=== PATIENT | female | born 1955 | race African-American/Black ===

== ENCOUNTER 2018-02-13 13:29 | Outpatient (CLI) | payer BC | END 2018-02-13 13:30 | disposition home or self-care (01) | LOC: BICMAMMO 13:29 | PROVIDERS: ATTEND Family Medicine | DX: Z12.31 Encounter for screening mammogram for malignant neoplasm of breast (principal); Z80.3 Family history of malignant neoplasm of breast | CPT/HCPCS: 77063; 77067 ==

== ENCOUNTER 2019-02-14 08:04 | Outpatient (CLI) | payer OTHER ==
--- NOTE | 2019-02-14 08:39 | MMO ---
Bilateral MAMMO Bilat Screen [facility]. CLINICAL HISTORY: Patient is 63 years old and is seen for screening. The patient has the following family history of breast cancer: grandmother. The patient has a history of malignant (generic) in the left breast 2007. The patient has a history of left Excisional Biopsy in March, - benign, left Lumpectomy in 2007 - malignant, right Breast reduction in 2007 and right needle biopsy more than 10 years ago - benign. VIEWS: The views performed were: bilateral craniocaudal with tomosynthesis and bilateral mediolateral oblique with tomosynthesis. FILMS COMPARED: The present examination has been compared to prior imaging studies performed at [facility] on 10/18/2016 and 02/13/2018, and at [facility] on 08/16/2013 and 10/31/2014. MAMMOGRAM FINDINGS: There are scattered fibroglandular densities. Finding 1: There are benign appearing calcifications seen in both breasts. Finding 2: There are post operative changes seen in the left breast. Finding 3: There is a biopsy clip seen in the right breast. There are no suspicious masses, suspicious calcifications, or new areas of architectural distortion. IMPRESSION: THERE IS NO MAMMOGRAPHIC EVIDENCE OF MALIGNANCY. A ROUTINE FOLLOW-UP MAMMOGRAM IN 1 YEAR IS RECOMMENDED. THE RESULTS OF THIS EXAM WERE SENT TO THE PATIENT. ACR BI-RADS Category 2 - Benign finding MAMMOGRAPHY NOTE: 1. A negative mammogram report should not delay a biopsy if a dominant of clinically suspicious mass is present. 2. Approximately 10% to 15% of breast cancers are not detected by mammography. 3. Adenosis and dense breasts may obscure an underlying neoplasm. Reported by: DARIO GARCIA MD Electonically Signed: [id number]
== END 2019-02-14 08:05 | disposition home or self-care (01) ==
LOC: BICMAMMO 08:04
PROVIDERS: ATTEND Family Medicine
DX: Z12.31 Encounter for screening mammogram for malignant neoplasm of breast (principal); Z80.3 Family history of malignant neoplasm of breast; Z85.3 Personal history of malignant neoplasm of breast; Z91.89 Other specified personal risk factors, not elsewhere classified; Z98.890 Other specified postprocedural states
CPT/HCPCS: 77063; 77067

== ENCOUNTER 2020-04-01 11:58 | Outpatient (CLI) | payer BC ==
--- NOTE | 2020-04-01 13:16 | MMO ---
Bilateral MAMMO Bilat Screen [facility]. CLINICAL HISTORY: Patient is 64 years old and is seen for screening. The patient has the following family history of breast cancer: grandmother. The patient has a history of malignant (generic) in the left breast 2007. The patient has a history of left Excisional Biopsy in March, - benign, left Lumpectomy in 2007 - malignant, right Breast reduction in 2007 and right needle biopsy more than 10 years ago - benign. VIEWS: The views performed were: bilateral craniocaudal with tomosynthesis and bilateral mediolateral oblique with tomosynthesis. FILMS COMPARED: The present examination has been compared to prior imaging studies performed at [facility] on 10/18/2016, 02/13/2018 and 02/14/2019, and at [facility] on 10/31/2014. This study has been interpreted with the assistance of computer-aided detection. MAMMOGRAM FINDINGS: There are scattered fibroglandular densities. There are no suspicious masses, suspicious calcifications, or new areas of architectural distortion. IMPRESSION: THERE IS NO MAMMOGRAPHIC EVIDENCE OF MALIGNANCY. A ROUTINE FOLLOW-UP MAMMOGRAM IN 1 YEAR IS RECOMMENDED. THE RESULTS OF THIS EXAM WERE SENT TO THE PATIENT. ACR BI-RADS Category 1 - Negative MAMMOGRAPHY NOTE: 1. A negative mammogram report should not delay a biopsy if a dominant of clinically suspicious mass is present. 2. Approximately 10% to 15% of breast cancers are not detected by mammography. 3. Adenosis and dense breasts may obscure an underlying neoplasm. Reported by: Maribell PONCE Electonically Signed: [id number]
== END 2020-04-01 11:59 | disposition home or self-care (01) ==
LOC: BICMAMMO 11:58
PROVIDERS: ATTEND Family Medicine
DX: Z12.31 Encounter for screening mammogram for malignant neoplasm of breast (principal); Z98.890 Other specified postprocedural states; Z85.3 Personal history of malignant neoplasm of breast; Z80.3 Family history of malignant neoplasm of breast
CPT/HCPCS: 77063; 77067

== ENCOUNTER 2021-05-08 09:21 | Outpatient (CLI) | payer BC | END 2021-05-08 09:22 | disposition home or self-care (01) | LOC: BICMAMMO 09:21 | PROVIDERS: ATTEND Family Medicine | DX: Z12.31 Encounter for screening mammogram for malignant neoplasm of breast (principal); Z80.3 Family history of malignant neoplasm of breast; Z85.3 Personal history of malignant neoplasm of breast; Z91.89 Other specified personal risk factors, not elsewhere classified; Z98.890 Other specified postprocedural states; Z98.82 Breast implant status | CPT/HCPCS: 77063; 77067 ==

== ENCOUNTER 2022-06-28 11:22 | Outpatient (CLI) | payer BC, MEDICARE | END 2022-06-28 11:23 | disposition home or self-care (01) | LOC: BICMAMMO 11:22 | PROVIDERS: ATTEND Family Medicine | DX: Z12.31 Encounter for screening mammogram for malignant neoplasm of breast (principal); R92.1 Mammographic calcification found on diagnostic imaging of breast; Z85.3 Personal history of malignant neoplasm of breast; Z98.890 Other specified postprocedural states; Z86.018 Personal history of other benign neoplasm; Z91.89 Other specified personal risk factors, not elsewhere classified; Z80.3 Family history of malignant neoplasm of breast | CPT/HCPCS: 77063; 77067 ==

== ENCOUNTER 2022-10-07 14:32 | Outpatient (CLI) | payer MEDICARE ==
[2022-10-07 15:12] LABS: #Eosinphils 0.2 10x3/uL (0.0-0.5); #Monocytes 0.6 10x3/uL (0.0-1.1); #Neutrophils 3.7 10x3/uL (1.5-8.4); %Basophils 0.3 % (0.0-2.0); %Eosinophils 3.1 % (0.0-6.0); %Lymphocytes 24.7 % (18.0-47.0); %Monocytes 9.5 % (0.0-10.0); %Neutrophils 62.2 % (40.0-75.0); Hemoglobin 12.3 g/dL (12.0-15.5); Mean Corpuscular HGB CONC 31.2 g/dL (32.0-36.0); Mean Corpuscular Hemoglobin 25.8 pg (27.0-33.0); Mean Corpuscular Volume 82.6 fl (81.6-98.3); Platelet Count 324 10x3/uL (150-450); RBC Distribution Width 15.9 % (11.5-14.5); Red Blood Cell (RBC) Count 4.77 10x6/uL (3.90-5.03); White Blood Cell (WBC) Count 5.9 10x3/uL (3.5-10.5)
[2022-10-07 15:36] LABS: Anion Gap 15 mmol/L (10-20); BUN (Urea Nitrogen) 15 mg/dL (9.8-20.1); Calc. Creatinine Clearance 0 mL/min (70-130); Calcium 9.2 mg/dL (7.8-10.44); Carbon Dioxide 26 mmol/L (23-31); Chloride 103 mmol/L (98-107); Estimated GFR 56; Glucose 161 mg/dL (80-115); Potassium 3.8 mmol/L (3.5-5.1); Sodium 140 mmol/L (136-145)
== END 2022-10-07 14:33 | disposition home or self-care (01) ==
LOC: LABBT 14:32
PROVIDERS: ATTEND Orthopaedic Surgery Hand Surgery
DX: Z01.812 Encounter for preprocedural laboratory examination (principal); M15.4 Erosive (osteo)arthritis
CPT/HCPCS: 80048; 85025; 93005; 93010

== ENCOUNTER 2022-10-12 06:23 | Day surgery (SDC) | payer MEDICARE ==
[2022-10-08 16:07] VITALS: BMI 39.4
[2022-10-12] MEDS ORDERED: Bupivacaine PF 0.5% 30 ML VIAL ONE (07:49)
[2022-10-12] MEDS ORDERED: Betamet Acet/Betamet Na Ph 30 MG/5 ML VIAL ONE (07:50)
[2022-10-12] MEDS ORDERED: Bacitracin Zinc Ointment 30 gm TUBE ONE (07:50)
[2022-10-12] MEDS ORDERED: Sodium Chloride 0.9% 100 ML ONE (08:12)
[2022-10-12] MEDS ORDERED: CEFAZOLIN 2 GM VIAL ONE (08:12)
[2022-10-12] MEDS ORDERED: fentaNYL PF 100 MCG/2 ML SYRINGE ONE (08:13)
[2022-10-12] MEDS ORDERED: Metoclopramide HCl 10 MG/2 ML VIAL ONE (08:23)
[2022-10-12] MEDS ORDERED: PROPOFOL 200 MG/20 ML VIAL ONE (08:23)
[2022-10-12] MEDS ORDERED: Ondansetron PF 4 MG/2 ML Vial ONE (08:23)
[2022-10-12] MEDS ORDERED: PHENYLEPHRINE-NS 100 MCG/ML 10 ML SYRINGE ONE (08:23)
[2022-10-12] MEDS ORDERED: Lidocaine 1% PF 5 ML VIAL ONE (08:23)
[2022-10-12] MEDS ORDERED: Ketorolac Tromethamine 30 MG/ML VIAL ONE (08:23)
== END 2022-10-12 10:49 | disposition home or self-care (01) ==
LOC: SDC 06:23
PROVIDERS: ATTEND Orthopaedic Surgery Hand Surgery
PROC: 0LB50ZZ Excision of Right Lower Arm and Wrist Tendon, Open Approach (ICD-10-PCS; principal; 2022-10-12)
DX: M65.4 Radial styloid tenosynovitis [de Quervain] (principal); I10 Essential (primary) hypertension; E78.5 Hyperlipidemia, unspecified; E11.9 Type 2 diabetes mellitus without complications; K21.9 Gastro-esophageal reflux disease without esophagitis; N32.81 Overactive bladder; M79.7 Fibromyalgia; M06.9 Rheumatoid arthritis, unspecified; Z79.4 Long term (current) use of insulin; Z79.82 Long term (current) use of aspirin; Z79.84 Long term (current) use of oral hypoglycemic drugs; Z79.85 Long-term (current) use of injectable non-insulin antidiabetic drugs; Z79.899 Other long term (current) drug therapy
CPT/HCPCS: J0702; J1885; J2405; J2704; J2765; J3490; S0020

== ENCOUNTER 2023-05-23 12:19 | Outpatient (CLI) | payer MEDICARE ==
[~2023-05-23 12:19] MED LIST: Iopamidol 370 76% 100 ML VIAL ONE
== END 2023-05-23 12:20 | disposition home or self-care (01) ==
LOC: BICCT 12:19
PROVIDERS: ATTEND Family Medicine
DX: R26.89 Other abnormalities of gait and mobility (principal)
CPT/HCPCS: 70470; 82565; Q9967

== ENCOUNTER 2023-07-28 14:28 | Outpatient (CLI) | payer MEDICARE | END 2023-07-28 14:29 | disposition home or self-care (01) | LOC: BICMAMMO 14:28 | PROVIDERS: ATTEND Family Medicine | DX: Z12.31 Encounter for screening mammogram for malignant neoplasm of breast (principal); Z80.3 Family history of malignant neoplasm of breast; Z85.3 Personal history of malignant neoplasm of breast; Z91.89 Other specified personal risk factors, not elsewhere classified; Z98.890 Other specified postprocedural states | CPT/HCPCS: 77063; 77067 ==

== ENCOUNTER 2023-10-31 13:23 | Outpatient (CLI) | payer MEDICARE | END 2023-10-31 13:24 | disposition home or self-care (01) | LOC: BICMAMMO 13:23 | PROVIDERS: ATTEND Family Medicine | DX: Z13.820 Encounter for screening for osteoporosis (principal); M85.89 Other specified disorders of bone density and structure, multiple sites; Z78.0 Asymptomatic menopausal state | CPT/HCPCS: 77080 ==

== ENCOUNTER 2025-04-17 12:21 | Emergency (ER) | payer MEDICARE ==
[2025-04-17 13:13] LABS: #Basophils Less than 0.03 10x3/uL (0.0-0.2); #Eosinophils 0.27 10x3/uL (0.0-0.7); #Monocytes 0.52 10x3/uL (0.11-0.59); #Neutrophils 3.69 10x3/uL (1.40-6.50); %Basophils 0.3 % (0.0-1.0); %Eosinophils 4.3 % (0.0-10.0); %Lymphocytes 27.7 % (21.0-51.0); %Monocytes 8.3 % (0.0-10.0); %Neutrophils 59.1 % (42.0-75.0); Hematocrit 38.7 % (36.0-47.0); Hemoglobin 12.4 g/dL (12.0-16.0); Mean Corpuscular Hemoglobin 25.6 pg (27.0-31.0); Mean Corpuscular Volume 79.8 fL (78.0-98.0); Platelet Count 297 10x3/uL (130-400); Red Blood Cell (RBC) Count 4.85 mill/uL (4.20-5.40); White Blood Cell (WBC) Count 6.25 10x3/uL (4.8-10.8)
[2025-04-17 13:32] LABS: ALT (SGPT) 23 U/L (Less than 34); AST (SGOT) 35 U/L (11-34); Albumin 3.7 g/dL (3.1-4.5); Alkaline Phosphatase 53 U/L (40-110); Anion Gap 15 mmol/L (10-20); BUN (Urea Nitrogen) 16 mg/dL (9.8-20.1); Bilirubin, Total 0.4 mg/dL (0.3-1.2); Calc. Creatinine Clearance 0 mL/min (70-130); Calcium 9.5 mg/dL (7.8-10.44); Carbon Dioxide 28 mmol/L (23-31); Chloride 100 mmol/L (98-107); Globulin 4.2 g/dL (2.4-3.5); Glucose 81 mg/dL (80-115); Magnesium 1.9 mg/dL (1.6-2.6); Potassium 3.0 mmol/L (3.5-5.1); Sodium 140 mmol/L (136-145)
[2025-04-17] MEDS ORDERED: methylPREDNISolone Sod Succ 1 GM in Sodium Chloride 0.9% 250 ML 250 ML IVPB SCH (16:00)
== END 2025-04-17 21:36 | disposition short-term general hospital (02) ==
LOC: ERS 12:21
DX: G35.D Multiple sclerosis, unspecified (principal); M48.8X2 Other specified spondylopathies, cervical region; E11.9 Type 2 diabetes mellitus without complications; I10 Essential (primary) hypertension
CPT/HCPCS: 70450; 70553; 76376; 80053; 83735; 85025; 93005; 96365; J2930; J7050

== ENCOUNTER 2025-05-08 09:25 | Outpatient (CLI) | payer MEDICARE ==
[2025-05-08 09:50] LABS: Estimated GFR - POC 80.0
== END 2025-05-08 09:26 ==
LOC: SCSMRI 09:25
DX: G35.A Relapsing-remitting multiple sclerosis (principal); G37.9 Demyelinating disease of central nervous system, unspecified; M51.34 Other intervertebral disc degeneration, thoracic region; M47.814 Spondylosis without myelopathy or radiculopathy, thoracic region; M47.812 Spondylosis without myelopathy or radiculopathy, cervical region
CPT/HCPCS: 72156; 72157